=== PATIENT | female | born 1950 | race Caucasian/White ===

== ENCOUNTER 2016-11-05 08:26 | Emergency (ER) | payer MEDICARE, MEDICAID, SELFPAY ==
[2016-11-05 08:43] VITALS: BMI 31.2
[2016-11-05] MEDS ORDERED: ONDANSETRON HCL 4 MG/2 ML VIAL IV STA (09:19)
[2016-11-05 09:32] LABS: AUTOMATED BASOPHIL 0.2 % (0-2); AUTOMATED EOSINOPHIL 0.2 % (0-5); AUTOMATED LYMPH 29.5 % (17-44); AUTOMATED MONOCYTE 8.9 % (3-10); AUTOMATED NEUTROPHIL 61.2 % (45-76); MPV 8.6 fL (7.4-10.4)
--- NOTE | 2016-11-05 09:36 | EDPRACDOC ---
- General Information Chief Complaint: Chest Pain Stated Complaint: NAUSEA Time Seen by Provider: 11/05/16 08:49 Information Source: Patient, Hospital Superintendent Mode of Arrival: Ambulance Home Medications: Home Medications Aspirin [Aspirin, Chewable] 81 mg PO DAILY 09/05/12 Furosemide [Lasix] 40 mg PO DAILY 09/05/12 Buprenorphine [Butrans Patch (5 mcg/hr)] 1 patch TOP .WEEKLY 04/21/13 Desvenlafaxine Succinate [Pristiq] 100 mg PO DAILY 09/14/13 Topiramate 200 mg PO HS 09/14/13 Zoledronic Acid/Mannitol&Water [Reclast 5 mg/100 ml Solution] 5 mg IV .YEARLY Levothyroxine [Synthroid, Levoxyl] 88 mcg PO DAILY 03/24/16 Amlodipine Besylate 10 mg PO HS 06/01/16 Diazepam [Valium] 10 mg PO BID PRN 06/01/16 Fluticasone/Vilanterol [Breo Ellipta 200-25 Mcg INH] 1 puff INH BID 06/01/16 Nebulizer [Needs Home Nebulizer] 1 item NEB DIR 06/01/16 Albuterol Sulfate [Proventil, Ventolin] 2.5 mg NEB Q6H PRN 11/05/16 Aripiprazole [Abilify] 5 mg PO HS 11/05/16 Atorvastatin Calcium [Lipitor] 40 mg PO HS 11/05/16 Azelastine/Fluticasone [Dymista Nasal [place]] 1 spray GOLD DAILY 11/05/16 Azithromycin 250 mg PO DAILY #4 tablet 11/05/16 CYANOCOBALAMIN (Vitamin B-12) [Vitamin B-12] 1,000 mcg IM .MONTHLY 11/05/16 Ergocalciferol (Vitamin D2) [Vitamin D] 50,000 units PO We@0900 11/05/16 Estradiol [Estrace] 1 grams PV MOWEFR 11/05/16 L. Acidophilus/Pectin, [place] [Acidophilus Capsule] 1 each PO DAILY 11/05/16 Olmesartan Medoxomil [Benicar] 40 mg PO DAILY 11/05/16 Pantoprazole Sodium [Protonix] 40 mg PO DAILY 11/05/16 Potassium Chloride [K-Tab ER] 20 meq PO HS 11/05/16 Promethazine HCl [Phenergan] 12.5 mg PO Q6H PRN 11/05/16 Promethazine [Phenergan] 25 mg PO Q8H PRN #30 tab 11/05/16 Scopolamine [Transderm Scop] 1 pat TOP Q72H PRN 11/05/16 Valacyclovir HCl [Valtrex] 500 mg PO HS 11/05/16 Allergies/Adverse Reactions: Allergies Allergy/AdvReac Type Severity Reaction Status Date / Time Penicillins Allergy Severe Hives* Verified 11/05/16 08:43 Corticosteroids Allergy Intermediate Hives* Verified 11/05/16 08:43 (Glucocorticoids) prednisone [Prednisone] Allergy Unknown Hives* Verified 11/05/16 08:43 clonidine Allergy Hypotension Verified 11/05/16 08:43 regadenoson Allergy Wheezing Verified 11/05/16 08:43 - History of Present Illness Onset: 05 HPI: PT PRESENTS WITH SUBSTERNAL/EPIGASTRIC PAIN THAT BEGAN THIS MORNING. PATIENT REPORTS THAT SHE HAD A TEMPERATURE TO 100.1 YESTERDAY AND HAS BEEN FEELING POORLY FOR THE LAST 3 DAYS. SHE HAS FATIGUE, NAUSEA, AND VOMITING. Chest Pain Location: Reports: Substernal, Epigastric Pain Radiation: Reports: Neck Symptoms Occur: Reports: At Rest Medications within 24 Hours: Reports: Aspirin Pain Came On: Reports: Suddenly Pain Status: Present Now Pain Description: Reports: Aching Pain Severity: Moderate Pain Worsens With: Reports: Nothing Pain Improves With: Reports: Nothing Associated Signs and Symptoms: Reports: SOB, Abdominal Pain, Nausea, Vomiting ED Past Medical History - History Reviewed Yes Nurses notes reviewed and agree except as marked - Patient Medical History Cardiac History: Reports: Atrial Fibrillation, Hypertension, Congestive Heart Failure, Heart Attack, Cardiac Catheterization, Hypercholesterolemia Respiratory History: Reports: Asthma, COPD, Chronic Bronchitis, Emphysema GI/ History: Reports: Kidney Stones, Gastroesophageal Reflux Musculoskeletal History: Reports: Arthritis Psychological History: Reports: Depression, Anxiety Systemic History: Reports: Diabetes, Hypothyroidism. Denies: Cancer Surgical History: Reports: Hysterectomy, Cardiac Catheterization - Family Medical History Reports: Cardiac Disorders (FATHER) - Social Medical History Smoking Status: Never smoker Lives In: Home EDM Review of Systems - Review of Systems ROS Negative Except as Marked: Yes All systems reviewed and were negative except as marked Constitutional: Fever, Fatigue, Weakness Respiratory: Shortness of Breath Cardiovascular: Chest Pain Gastrointestinal: Nausea, Pain, Vomiting. negative: Diarrhea - Physical Exam Constitutional: Alert Oriented to: Time, Person, Place Last recorded Vital Signs: Last Vital Signs Temp 97.8 F 11/05/16 08:30 Pulse 101 11/05/16 09:28 Resp 22 11/05/16 09:28 BP 134/72 11/05/16 09:28 Pulse Ox 97 11/05/16 09:28 Oxygen Pulse Oxygen Saturation 97 O2 Device Oxygen Flow Rate Fraction of Inspired Oxygen ( FIO2) - HEENT Head: negative: Deformity, Laceration Eye Exam: negative: Conjunctival Injection, Pale Conjunctiva Oropharynx: negative: Membranes Dry Nose: negative: Congestion, Discharge Neck: negative: Limited ROM - Respiratory/Cardiovascular Respiratory: Normal - CTA. negative: Accessory Muscle Use, Diminished, Tachypnea Cardiovascular: Tachycardia. negative: Bradycardia, Irregular - GI Auscultation: Normal Palpation: Normal Tenderness: Mild, Epigastric. negative: Guarding, Rebound, Rigidity - Musculoskeletal Extremities: Radial Pulse (PALPABLE) - Integumentary Skin: Warm, Dry. negative: Rash - Neurologic Memory Impaired: Normal Motor Function: Normal Mood Description: Anxious Thought: Coherent Perception: Normal ED Chest Pain Exam - Respiratory/Cardiovascular Chest Palpation: negative: Tender, Reproduces Pain - Action ASA given in the ED: Yes - Re-evaluation Re-evaluation 1 Re-evaluation Time: 13:27 IMAGING SHOWS BIBASILAR INFLAMMATION/INFECTION. WILL TREAT PNEUMONIA. - Results 11/05/16 09:15 11/05/16 09:15 WBC 10.5 xk/uL (3.8-10.8) 11/05/16 09:15 RBC 4.86 xM/uL (4.20-5.40) 11/05/16 09:15 Hgb 16.5 g/dL (12.0-16.0) H 11/05/16 09:15 Hct 47.5 % (36-47) H 11/05/16 09:15 MCV 98 fL (81-99) 11/05/16 09:15 MCH 34.0 pg (27-32) H 11/05/16 09:15 MCHC 34.8 g/dl (33-36) 11/05/16 09:15 RDW 13.1 % (11.5-14.5) 11/05/16 09:15 Plt Count 282 xk/uL (130-400) 11/05/16 09:15 MPV 8.6 fL (7.4-10.4) 11/05/16 09:15 Neut % (Auto) 61.2 % (45-76) 11/05/16 09:15 Lymph % (Auto) 29.5 % (17-44) 11/05/16 09:15 Smith % (Auto) 8.9 % (3-10) 11/05/16 09:15 Eos % (Auto) 0.2 % (0-5) 11/05/16 09:15 Baso % (Auto) 0.2 % (0-2) 11/05/16 09:15 Absolute Neuts (auto) 6.41 xk/uL (1.7-8.2) 11/05/16 09:15 Absolute Lymphs (auto) 3.05 xk/uL (0.65-4.75) 11/05/16 09:15 Microbiology 11/05/16 09:00 Influenza Type A Antigen Screen - Final Nasal Washing/Aspirate Or Swab NEGATIVE Please note: A NEGATIVE result does not exclude an influenza virus infection. It is a presumptive result and, if required, confirmation should be done using either a virus culture or an FDA-cleared influenza A&B molecular assay. ("NORMAL" value = "NEGATIVE".) Influenza Type B Antigen Screen - Final NEGATIVE Please note: A NEGATIVE result does not exclude an influenza virus infection. It is a presumptive result and, if required, confirmation should be done using either a virus culture or an FDA-cleared influenza A&B molecular assay. ("NORMAL" value = "NEGATIVE".) Lab Results 11/05/16 09:15 WBC 10.5 RBC 4.86 Hgb 16.5 H Hct 47.5 H MCV 98 MCH 34.0 H MCHC 34.8 RDW 13.1 Plt Count 282 MPV 8.6 Neut % (Auto) 61.2 Lymph % (Auto) 29.5 Smith % (Auto) 8.9 Eos % (Auto) 0.2 Baso % (Auto) 0.2 Absolute Neuts (auto) 6.41 Absolute Lymphs (auto) 3.05 Laboratory Results - last 24 hr 11/05/16 09:15 WBC 10.5 RBC 4.86 Hgb 16.5 H Hct 47.5 H MCV 98 MCH 34.0 H MCHC 34.8 RDW 13.1 Plt Count 282 MPV 8.6 Neut % (Auto) 61.2 Lymph % (Auto) 29.5 [place] % (Auto) 8.9 Eos % (Auto) 0.2 Baso % (Auto) 0.2 Absolute Neuts (auto) 6.41 Absolute Lymphs (auto) 3.05 Laboratory Results 11/05/16 09:15 - EKG EKG #1 EKG Time: 08:37 -: Yes EKG interpreted by me Rate: bpm: 100 Rhythm: ST Block: RBBB, IVCD ST: Nonsp Decision Time to Discharge: 13:28 - Departure Yes I personally saw and evaluated the patient. Disposition: Home Condition: Stable Final Diagnosis: Hypokalemia Pneumonia Qualifiers: Pneumonia type: due to unspecified organism Laterality: bilateral Lung location : lower lobe of lung Qualified Code(s): J18.9 - Pneumonia, unspecified organism Instructions: Community Acquired Pneumonia (ED) Education/Counseling Given To: Patient Education/Counseling Given Regarding: Diagnosis, Treatment, Prognosis, Follow Up Referrals: None,No Provider [Primary Care Provider] - Call for Appointment Prescriptions: Azithromycin 250 mg PO DAILY #4 tablet Promethazine [Phenergan] 25 mg PO Q8H PRN #30 tab PRN Reason: Nausea/Vomiting
[2016-11-05 09:40] LABS: BLOOD UREA NITROGEN 14 MG/DL (7-17); CALC CORRECTED 9.5 MG/DL (8.4-10.2); CALCIUM 9.4 MG/DL (8.4-10.2); CALCULATED OSMOLALITY 268 MOs/Kg (270-290); CHLORIDE 106 mEq/L (98-107); GLUCOSE 123 MG/DL (70-99); SODIUM LEVEL 138 mEq/L (137-146); TOTAL PROTEIN 7.5 G/DL (6.3-8.2)
[2016-11-05 09:43] LABS: PARTIAL THROMB. TIME 26.4 SEC (22-35)
--- NOTE | 2016-11-05 10:05 | DIRPT ---
CLINICAL DATA: Fever and fatigue EXAM: CHEST - 2 VIEW COMPARISON: 10/08/2016 FINDINGS: The heart size and mediastinal contours are within normal limits. Both lungs are clear. The visualized skeletal structures are unremarkable. IMPRESSION: No active disease. Electronically Signed By: Juliocesar Sultana M.D. On: 11/05/2016 10:03
[2016-11-05] MEDS ORDERED: NS 1,000 ML IV ONE (10:18)
[2016-11-05 10:23] LABS: LEUKOCYTES/URINE NEG (NEGATIVE); NITRITE/URINE NEG (NEGATIVE); RBC/URINE 0-2 (0-5); URINE OCCULT BLOOD NEG (NEG/TRACE)
[2016-11-05] MEDS ORDERED: ASPIRIN 325 MG TAB PO ONE (10:26)
[2016-11-05 10:54] LABS: CPK TOTAL WITH POSSIBLE MB 75 IU/L (30-134)
[2016-11-05] MEDS ORDERED: PROMETHAZINE 25 MG/ML VIAL IV STA (11:02)
[2016-11-05] MEDS ORDERED: MORPHINE 4 MG/ML INJECTION IV ONE (11:02)
[2016-11-05] MEDS ORDERED: LABETALOL 20 MG/4 ML SYRINGE IV STA (11:52)
[2016-11-05] MEDS ORDERED: Pharmacy Review for Metformin - IV Contrast Given SCH (12:00)
--- NOTE | 2016-11-05 12:57 | DIRPT ---
CLINICAL DATA: Epigastric pain since early this morning. Feeling bad for 3 days. EXAM: CT ABDOMEN AND PELVIS WITH CONTRAST TECHNIQUE: Multidetector CT imaging of the abdomen and pelvis was performed using the standard protocol following bolus administration of intravenous contrast. CONTRAST: 80 mL Isovue 370 COMPARISON: None. FINDINGS: Lower chest: Mild bibasilar subpleural hazy airspace disease with mild interstitial thickening and interspersed areas of ground-glass opacity which may be secondary to an infectious or inflammatory process. Normal heart size. Hepatobiliary: Normal liver. Prior cholecystectomy. Mild intrahepatic biliary ductal prominence. Pancreas: Normal. Spleen: Normal. Adrenals/Urinary Tract: Normal adrenal glands. Normal right kidney. 4 mm left renal nonobstructing calculus. No obstructive uropathy. Normal bladder. Stomach/Bowel: No bowel wall thickening or dilatation. No pneumatosis, pneumoperitoneum or portal venous gas. Normal appendix. No abdominal pelvic free fluid. Vascular/Lymphatic: Normal caliber abdominal aorta. No lymphadenopathy. Reproductive: Prior hysterectomy. No adnexal mass. Other: No other fluid collection or hematoma. Musculoskeletal: No acute osseous abnormality. No lytic or sclerotic osseous lesion. Right hip arthroplasty. Degenerative disc disease with disc height loss and a broad-based disc bulge at L5-S1. Bilateral foraminal stenosis at L5-S1. IMPRESSION: 1. No acute abdominal or pelvic pathology. 2. Mild bibasilar subpleural hazy airspace disease with scattered areas of interstitial thickening and interspersed areas of ground glass opacities which may be secondary to an infectious or inflammatory etiology. 3. Nonobstructing left renal calculus. Electronically Signed By: Flakita Pena On: 11/05/2016 12:54
[2016-11-05] MEDS ORDERED: POTASSIUM CHLORIDE 20 MEQ TAB PO STA (13:16)
[2016-11-05] MEDS ORDERED: AZITHROMYCIN 250 MG TAB PO ONE (13:26)
[2016-11-05 14:05] VITALS: BP 135/69; PULSE 93; TEMP 98.6
== END 2016-11-05 14:05 | disposition home or self-care (01) ==
LOC: ED 08:26
DX: J18.9 Pneumonia, unspecified organism (principal); E87.6 Hypokalemia; R10.13 Epigastric pain
CPT/HCPCS: 36415; 71020; 74177; 80053; 81001; 82550; 83605; 83690; 84484; 85025; 85610; 85730; 87040; 87086; 87804; 93005; 96361; 96374; 96375; 99285; A9270; A9698; J2270; J2405; J2550; J3490

== ENCOUNTER 2016-11-06 12:41 | Inpatient (IN) | payer MEDICARE, MEDICAID, SELFPAY ==
[2016-11-06] MEDS ORDERED: ACETAMINOPHEN 325 MG/TAB TABLET PO PRN (15:28)
[2016-11-06] MEDS ORDERED: GLUCAGON 1 MG VIAL SQ PRN (15:28)
[2016-11-06] MEDS ORDERED: HYDROCODONE 5 MG/ACETAMIN 325 MG TAB PO PRN (15:28)
[2016-11-06] MEDS ORDERED: PROMETHAZINE 25 MG/ML VIAL IV PRN (15:28)
[2016-11-06] MEDS ORDERED: Docusate Sodium 100 MG CAP PO PRN (15:28)
[2016-11-06] MEDS ORDERED: DEXTROSE 25 GM/50 ML PFS IV PRN (15:28)
[2016-11-06] MEDS ORDERED: GLUCOSE (ORAL GEL) 15 GM TUBE PO PRN (15:28)
[2016-11-06] MEDS ORDERED: NS 500 ML IV ONE (15:35)
[2016-11-06] MEDS ORDERED: LEVALBUTEROL 1.25 MG in 3 ML NEB NEB PRN (15:37)
[2016-11-06] MEDS ORDERED: Vaccine Screening Complete SCH (16:00)
[2016-11-06] MEDS ORDERED: METHYLPREDNISOLONE 125 MG/2 ML VIAL IV ONE (16:00)
--- NOTE | 2016-11-06 16:10 | DIRPT ---
CLINICAL DATA: Pneumonia. Severe shortness of breath and cough. Chest pain. Asthma. EXAM: PORTABLE CHEST 1 VIEW COMPARISON: 11/05/2016 FINDINGS: The heart size and mediastinal contours are within normal limits. Both lungs are clear. The visualized skeletal structures are unremarkable. IMPRESSION: No active disease. Electronically Signed By: Andrew Diaz M.D. On: 11/06/2016 16:07
[2016-11-06] MEDS: LEVALBUTEROL 1.25 MG in 3 ML NEB NEB SCH ×2 (16:14→23:27)
[2016-11-06] MEDS: IPRATROPIUM 0.02% 2.5 ML NEB NEB SCH ×2 (16:16→23:24)
[2016-11-06 16:26] LABS: ABG Draw Site Left Brachial; ALLEN'S TEST PASS; TCO2 17.9 MMOL/L (23-27)
[2016-11-06] MEDS: ENOXAPARIN 40 MG/0.4 ML PFS SQ SCH (16:35)
[2016-11-06] MEDS: REGULAR INSULIN 100 UNITS/ML - 3 ML VIAL SQ SCH ×2 (16:38→22:15)
[2016-11-06 17:08] LABS: AUTOMATED BASOPHIL 0.4 % (0-2); AUTOMATED LYMPH 30.1 % (17-44); AUTOMATED MONOCYTE 8.3 % (3-10); AUTOMATED NEUTROPHIL 61.2 % (45-76); MPV 8.8 fL (7.4-10.4)
[2016-11-06] MEDS: Levofloxacin 750 mg/150 ml D5W 750 MG/150 ML RTU IV SCH (17:10)
[2016-11-06 17:25] LABS: BLOOD UREA NITROGEN 13 MG/DL (7-17); CALCIUM 9.2 MG/DL (8.4-10.2); CALCULATED OSMOLALITY 276 MOs/Kg (270-290); CHLORIDE 111 mEq/L (98-107); CPK TOTAL WITH POSSIBLE MB 53 IU/L (30-134); GLUCOSE 115 MG/DL (70-99); SODIUM LEVEL 143 mEq/L (137-146); TOTAL PROTEIN 7.2 G/DL (6.3-8.2)
--- NOTE | 2016-11-06 17:27 | CAPUEKG ---
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
[2016-11-06 17:29] LABS: PARTIAL THROMB. TIME 24.9 SEC (22-35); PT-INR 1.1
--- NOTE | 2016-11-06 20:41 | GENMEDPROG ---
Chief Complaint: COPD exac, pneumonia, HTN, anxiety - Physical Examination Vital Signs and I&O: Last Vital Signs Temp 98.0 F 11/06/16 16:00 Pulse 100 11/06/16 16:00 Resp 20 11/06/16 16:00 BP 134/63 11/06/16 16:00 Pulse Ox 97 11/06/16 16:00 Oxygen Pulse Oxygen Saturation 97 O2 Device Room Air Oxygen Flow Rate Fraction of Inspired Oxygen ( FIO2) Intake & Output 11/03/16 11/04/16 11/05/16 11/06/16 23:59 23:59 23:59 23:59 Intake Total 252 Output Total 2 Balance 250 Patient's weight 72.575 kg
--- NOTE | 2016-11-06 20:53 | HIMCONSMED ---
Consultation Date: 11/06/16 Requesting Physician: Marcos Juarez Consulting Doctor: Tori Robledo Consult Reason: Medical Management Neelam Rivas is a 66 year old woman who states that she came to the ED a few days ago and was diagnosed with pneumonia. She was treated as an outpatient and discharged home, however, she continued to feel poorly, so she returned to Dr. Juarez's office for further evaluation. She has a prior history of asthma with COPD. She has never smoked, but complained of persistent weakness and tightness in her chest, with a dull ache in her chest and numbness in her left shoulder. She stated that this was a vague discomfort that would come and go through-out the day, but never really seemed to resolve. She has a history of heart disease, and does have hypertension and hyperlipidemia. Her father with an acute myocardial infarction. Chief Complaint: short of breath, anxiety - Past Medical and Surgical History Cardiac History: Reports: Atrial Fibrillation, Hypertension, Congestive Heart Failure, Heart Attack, Cardiac Catheterization, Hypercholesterolemia Respiratory History: Reports: Asthma, COPD, Chronic Bronchitis, Emphysema GI/ History: Reports: Kidney Stones, Gastroesophageal Reflux Systemic History: Reports: Diabetes, Hypothyroidism. Denies: Cancer Musculoskeletal History: Reports: Arthritis Psychological History: Reports: Depression, Anxiety Past Surgical History: Reports: Hysterectomy, Cardiac Catheterization, Other ( hip replacement, [place] fundoplication, breast reduction, portacath) Allergies Penicillins Allergy (Severe, Verified 11/06/16 16:07) Hives* This was "a shot in my knee" states she can take Solumedrol Corticosteroids (Glucocorticoids) Allergy (Intermediate, Verified 11/06/16 16:07 ) Hives* prednisone [Prednisone] Allergy (Unknown, Verified 11/06/16 16:07) Hives* clonidine Allergy (Verified 11/06/16 16:07) Hypotension regadenoson Allergy (Verified 11/06/16 16:07) Wheezing Patient developed wheezing/dyspnea after administration of Lexiscan for stress test on 06/01/16. Did not immediately resolve with DuoNeb treatment and required transfer to ED for management. Home Medications Aspirin [Aspirin, Chewable] 81 mg PO DAILY 09/05/12 Furosemide [Lasix] 40 mg PO DAILY 09/05/12 Desvenlafaxine Succinate [Pristiq] 100 mg PO DAILY 09/14/13 Topiramate 200 mg PO HS 09/14/13 Zoledronic Acid/Mannitol&Water [Reclast 5 mg/100 ml Solution] 5 mg IV .YEARLY Levothyroxine [Synthroid, Levoxyl] 88 mcg PO DAILY 03/24/16 Amlodipine Besylate 10 mg PO HS 06/01/16 Diazepam [Valium] 10 mg PO BID PRN 06/01/16 Fluticasone/Vilanterol [Breo Ellipta 200-25 Mcg INH] 1 puff INH BID 06/01/16 Nebulizer [Needs Home Nebulizer] 1 item NEB DIR 06/01/16 Albuterol Sulfate [Proventil, Ventolin] 2.5 mg NEB Q6H PRN 11/05/16 Atorvastatin Calcium [Lipitor] 40 mg PO HS 11/05/16 Azelastine/Fluticasone [Dymista Nasal [place]] 1 spray GOLD DAILY 11/05/16 CYANOCOBALAMIN (Vitamin B-12) [Vitamin B-12] 1,000 mcg IM .MONTHLY 11/05/16 Ergocalciferol (Vitamin D2) [Vitamin D] 50,000 units PO We@0900 11/05/16 Estradiol [Estrace] 1 grams PV MOWEFR 11/05/16 L. Acidophilus/Pectin, [place] [Acidophilus Capsule] 1 each PO DAILY 11/05/16 Olmesartan Medoxomil [Benicar] 40 mg PO DAILY 11/05/16 Pantoprazole Sodium [Protonix] 40 mg PO DAILY 11/05/16 Potassium Chloride [K-Tab ER] 20 meq PO HS 11/05/16 Promethazine [Phenergan] 25 mg PO Q8H PRN #30 tab 11/05/16 Scopolamine [Transderm Scop] 1 pat TOP Q72H PRN 11/05/16 Valacyclovir HCl [Valtrex] 500 mg PO HS 11/05/16 Buprenorphine [Butrans] 1 pat TOP WEEKLY 11/06/16 LIDOCAINE 5% Ointment [XYLOCAINE 5% Ointment] 1 gm TOP DIR PRN 11/06/16 - Social History Travel Outside of [place] in the Last 3 Months?: No Lives: With Family Smoking Status: Never smoker Social History: Denies: Alcohol Use - Family History Reports: Cardiac Disorders (FATHER) - Review of Systems Constitutional: Fatigue, Weakness Eyes: No Symptoms Reported Ears: No Symptoms Reported Nose: No Symptoms Reported Mouth: No Symptoms Reported Throat/Neck: No Symptoms Reported Respiratory: Cough, Shortness of Breath, Asthma, Bronchitis, Dyspnea Cardiovascular: Chest Pain, Edema (last week), Palpitations Gastrointestinal: Nausea, Diarrhea, Constipation, Heartburn Genitourinary: Frequency, Postmenopause Neurological: Dizziness, Headache, Weakness Musculoskeletal:: Osteoarthritis, Weakness, Joint Pain, Muscle Pain, Swelling Integumentary: No Symptoms Reported Allergic/Immunologic: No Symptoms Reported Hematologic: Anemia Endocrine: Excessive Sweating, Heat Intolerance, Diabetes, Hypothyroidism Psychiatric: Anxiety, Depression - Physical Exam Vital Signs: Initial Vitals Temperature 98.0 F 11/06/16 16:00 Pulse Rate 100 11/06/16 16:00 Respiratory Rate 20 11/06/16 16:00 Blood Pressure 134/63 11/06/16 16:00 Pulse Oxygen Saturation 97 11/06/16 16:00 Constitutional: No apparent distress, Alert Oriented to: Time, Person, Place - HEENT Head: Normal Eye: Normal (PERRL: EOMI) Oropharynx: Normal, Membranes Dry. negative: Exudate, Red Tympanic Membrane: Normal ENT EAC: Normal Nose: negative: Bleeding, Congestion, Discharge Respiratory: Diminished, Rales, Wheezes Cardiovascular: Tachycardia (regular rhythm and rate). negative: Gallop/S3, Gallop/S4 - GI Auscultation: Normal Palpation: Normal (soft, nondistended, no mass) Tenderness: Non tender Felix's Sign: Negative Rectal Exam: Deferred - Musculoskeletal Back: Normal Extremities: Normal, Pedal Pulse (normal), Radial Pulse (normal). negative: Clubbing, Cyanosis, Edema Spine: non-tender, normal alignment, normal inspection - Integumentary Skin: Warm, Dry Lymphatics: Normal - Neurologic Memory Impaired: Normal Motor Function: Normal Cranial Nerve: Normal Cerebellar: Normal Mood Description: Anxious Thought: Coherent Perception: Normal - Lab Results Laboratory Tests 11/06/16 11/06/16 11/06/16 16:20 16:38 16:40 WBC Hgb Hct Plt Count PT INR APTT Puncture Site Left brachial pH 7.410 pCO2 27.0 L pO2 99.0 HCO3 17.1 L Total CO2 17.9 L Base Excess -6.0 L FiO2 % Room air Sodium 143 Potassium 3.3 L Chloride 111 H Carbon Dioxide 18 L Anion Gap 17 H BUN 13 Creatinine 0.80 Estimated GFR (MDRD) > 60 Glucose 115 H POC Capillary Glucose 104 H Calculated Osmolality 276 Calcium 9.2 Total Bilirubin 0.7 AST 43 H ALT 73 H Alkaline Phosphatase 90 Creatine Kinase 53 Troponin I < 0.01 Total Protein 7.2 Albumin 4.0 11/06/16 11/06/16 16:40 16:40 WBC 12.1 H Hgb 15.2 Hct 43.5 Plt Count 251 PT 10.8 INR 1.1 APTT 24.9 Puncture Site pH pCO2 pO2 HCO3 Total CO2 Base Excess FiO2 % Sodium Potassium Chloride Carbon Dioxide Anion Gap BUN Creatinine Estimated GFR (MDRD) Glucose POC Capillary Glucose Calculated Osmolality Calcium Total Bilirubin AST ALT Alkaline Phosphatase Creatine Kinase Troponin I Total Protein Albumin - Diagnostic Findings CXR': FINDINGS: The heart size and mediastinal contours are within normal limits. Both lungs are clear. The visualized skeletal structures are unremarkable. IMPRESSION: No active disease. Electronically Signed By: Andrew Diaz M.D. On: 11/06/2016 16:07 EKG: Normal sinus rhythm Incomplete right bundle branch block Possible Inferior infarct, age undetermined Possible Anterior infarct, age undetermined Abnormal ECG - Assessment (1) Pneumonia J18.9 - PNEUMONIA, UNSPECIFIED ORGANISM Acute Present on Admission: Yes Qualifiers: Pneumonia type: due to unspecified organism Laterality: bilateral Lung location: lower lobe of lung Qualified Code(s): J18.9 - Pneumonia, unspecified organism Continue current antibiotic regimen (Levaquin), monitor CXR and maintain O2 sats > 92%. (2) Chest pain at rest R07.9 - CHEST PAIN, UNSPECIFIED Acute Present on Admission: Yes Could be due to her pneumonia, but patient has a history of coronary artery disease with previous LA. Need to rule out LA and evaluate for ongoing ischemia. Continue oxygen, beta-vanessa, PRN NTG. Will add telemetry, check troponins, schedule stress test. (3) CAD (coronary artery disease) I25.10 - ATHSCL HEART DISEASE OF [place] CORONARY ARTERY W/O ANG PCTRS Chronic Present on Admission: Yes Qualifiers: Coronary Disease-Associated Artery/Lesion type: [place] artery [place] vs. transplanted heart: [place] heart Associated angina: with unstable angina Qualified Code(s): I25.110 - Atherosclerotic heart disease of [place] coronary artery with unstable angina pectoris (4) Chronic obstructive lung disease - COPD J44.9 - CHRONIC OBSTRUCTIVE PULMONARY DISEASE, UNSPECIFIED Active Present on Admission: Yes Acute exacerbation, mild. Patient is receiving DuoNebs and steroids, not wheezing at the time of my exam, yet reports having had chest pain x 2-3 days. (5) Hypothyroidism E03.9 - HYPOTHYROIDISM, UNSPECIFIED Chronic Present on Admission: Yes Continue current dose of Synthroid. (6) Hypokalemia E87.6 - HYPOKALEMIA Acute Present on Admission: Yes Replace losses and recheck.
[2016-11-06] MEDS ORDERED: POTASSIUM CHLORIDE 20 MEQ/15 ML ORAL SOLN PO ONE (21:14)
[2016-11-06] MEDS ORDERED: NITROGLYCERINE 0.4 MG TAB SL PRN (21:24)
[2016-11-06] MEDS ORDERED: ASPIRIN (CHEWABLE) 81 MG TAB PO ONE (21:25)
[2016-11-06] MEDS: CARVEDILOL 3.125 MG TAB PO SCH (22:20)
[2016-11-06] MEDS: METHYLPREDNISOLONE 125 MG/2 ML VIAL IV SCH (22:22)
[2016-11-07] MEDS ORDERED: NS 50 ML IV ONE ×2 (01:26→03:23)
[2016-11-07] MEDS: ACETAMINOPHEN 650 MG SUPP PR PRN (03:12)
[2016-11-07] MEDS: REGULAR INSULIN 100 UNITS/ML - 3 ML VIAL SQ SCH ×4 (03:14→21:42)
[2016-11-07] MEDS ORDERED: PROMETHAZINE 25 MG/ML VIAL IV ONE (03:22)
[2016-11-07] MEDS: METHYLPREDNISOLONE 125 MG/2 ML VIAL IV SCH ×2 (04:55→09:34)
[2016-11-07] MEDS: IPRATROPIUM 0.02% 2.5 ML NEB NEB SCH ×2 (07:32→15:51)
[2016-11-07] MEDS: LEVALBUTEROL 1.25 MG in 3 ML NEB NEB SCH ×2 (07:35→15:49)
[2016-11-07] MEDS: CARVEDILOL 3.125 MG TAB PO SCH ×2 (09:33→20:24)
[2016-11-07] MEDS: ASPIRIN (CHEWABLE) 81 MG TAB PO SCH (09:33)
--- NOTE | 2016-11-07 09:35 | GENMEDPROG ---
Chief Complaint: COPD, CHEST PAIN, FAN, ANXIETY Currently: Reports: Cough, Wheezing, FAN, SOB DVT Prophylaxis: Yes - Physical Examination Vital Signs and I&O: Last Vital Signs Temp 98 F 11/07/16 06:00 Pulse 59 L 11/07/16 06:00 Resp 20 11/07/16 06:00 BP 136/72 11/07/16 06:00 Pulse Ox 96 11/07/16 06:00 Oxygen Pulse Oxygen Saturation 96 O2 Device Room Air Oxygen Flow Rate Fraction of Inspired Oxygen ( FIO2) Intake & Output 11/04/16 11/05/16 11/06/16 11/07/16 23:59 23:59 23:59 23:59 Intake Total 252 379 Output Total 2 Balance 250 379 Patient's weight 72.575 kg 73.482 kg General: Alert, Oriented x3, Cooperative, No acute distress HEENT: Normal, PERRLA, EOMI, Anicteric Sclera, Mucous membr. moist/pink Neck: Non-tender, Full range of motion, Normal Trachea alignment, Normal inspection, No Masses palpable, No Thyromegaly palpable Lymphatics: Normal Respiratory: Normal - CTA, Diminished Cardiovascular: Regular rate and rhythm, Normal S1, Normal S2, Good Pedal Pulses. negative: LE Edema GI: Normal bowel sounds, Soft, Non tender, No masses Extremities/Musculoskeletal: Normal pulses, FROM. negative: Swelling, Edema Skin: Warm,Dry and Intact, No rashes, No breakdown Neurological: Normal speech, Strength at 5/5 X4 ext, Normal tone Psych/Mental Status: Cooperative, Anxious - Assessment (1) Pneumonia Acute J18.9 - PNEUMONIA, UNSPECIFIED ORGANISM Qualifiers: Pneumonia type: due to unspecified organism Laterality: bilateral Lung location: lower lobe of lung Qualified Code(s): J18.9 - Pneumonia, unspecified organism Comment/Plan: Continue current antibiotic regimen (Levaquin), monitor CXR and maintain O2 sats> 92%. (2) Chest pain at rest Acute R07.9 - CHEST PAIN, UNSPECIFIED Comment/Plan: Could be due to her pneumonia, but patient has a history of coronary artery disease with previous HI. Need to rule out HI and evaluate for ongoing ischemia. Continue oxygen, beta-vanessa, PRN NTG. Continue telemetry, stress test delayed due to patient anxiety and wheezing. (3) CAD (coronary artery disease) Chronic I25.10 - ATHSCL HEART DISEASE OF [place] CORONARY ARTERY W/O ANG PCTRS Qualifiers: Coronary Disease-Associated Artery/Lesion type: [place] artery [place] vs. transplanted heart: [place] heart Associated angina: with unstable angina Qualified Code(s): I25.110 - Atherosclerotic heart disease of [place] coronary artery with unstable angina pectoris Comment/Plan: Need to rule out HI and evaluate for ongoing ischemia. Continue oxygen, beta-vanessa, PRN NTG. Continue telemetry, stress test delayed due to patient anxiety and wheezing. (4) Chronic obstructive lung disease - COPD Active J44.9 - CHRONIC OBSTRUCTIVE PULMONARY DISEASE, UNSPECIFIED Comment/ Plan: Acute exacerbation, mild. Patient is receiving DuoNebs and steroids, not wheezing at the time of my exam, yet reports having had chest pain x 2-3 days. (5) Hypothyroidism Chronic E03.9 - HYPOTHYROIDISM, UNSPECIFIED Comment/Plan: Continue current dose of Synthroid. (6) Hypokalemia Acute E87.6 - HYPOKALEMIA Comment/Plan: Replace losses and recheck.
[2016-11-07] MEDS ORDERED: DOBUTamine 500,000 MCG/250 ML RTU IV ONE (10:00)
[2016-11-07] MEDS ORDERED: SODIUM CHLORIDE 0.9% 10 ML FLUSH FLUSH ONE (10:00)
--- NOTE | 2016-11-07 10:57 | PCM.PULM ---
Chief Complaint: Respiratory failure Asthma exacerbation Anxiety Uneventful overnight with no acute distress. patient in bed, alert and follows command. Still having cough,wheeze, SOB,FAN,fatigued, occasional headache and seems to be anxious and concerned about her breathing and her heart. No chest pain reported. Family at bedside. Medication list reviewed:yes Notes reviewed:yes DVT prophylaxis: yes - Physical Examination Vital Signs and I&O: Last Vital Signs Temp 98 F 11/07/16 06:00 Pulse 80 11/07/16 09:49 Resp 24 11/07/16 09:49 BP 141/78 11/07/16 09:49 Pulse Ox 98 11/07/16 09:49 Oxygen Pulse Oxygen Saturation 98 O2 Device Room Air Oxygen Flow Rate Fraction of Inspired Oxygen ( FIO2) Intake & Output 11/04/16 11/05/16 11/06/16 11/07/16 23:59 23:59 23:59 23:59 Intake Total 252 379 Output Total 2 Balance 250 379 Patient's weight 72.575 kg 73.482 kg General: Alert, Oriented x3, Cooperative, No acute distress, Well appearing, Well nourished, Weakness, Fatigue Respiratory: Normal - CTA Cardiovascular: Regular rate, Regular rate and rhythm, Normal S1, No Gallops, Rubs/Murmurs, Normal S2, Good Pedal Pulses (Dp pulses 2+ bilaterally) GI: Normal bowel sounds, Soft, Non tender, No hepatospenomegaly, No masses Extremities/Musculoskeletal: Normal pulses Skin: Warm,Dry and Intact, No rashes, No breakdown, No significant lesion Neurological: Normal Steady Gait, Normal speech, Strength at 5/5 X4 ext, Normal tone, Cranial nerves 3-12 NL Psych/Mental Status: Cooperative, Anxious Result Diagrams: 11/06/16 16:40 11/06/16 16:40 Labs (last 24 hours): Laboratory Results - last 24 hr 11/06/16 11/06/16 11/06/16 16:20 16:38 16:40 WBC RBC Hgb Hct MCV MCH MCHC RDW Plt Count MPV Neut % (Auto) Lymph % (Auto) [place] % (Auto) Eos % (Auto) Baso % (Auto) Absolute Neuts (auto) Absolute Lymphs (auto) PT INR APTT Puncture Site Left brachial pH 7.410 pCO2 27.0 L pO2 99.0 HCO3 17.1 L Total CO2 17.9 L Base Excess -6.0 L FiO2 % Room air Specimen Drawn By Jd Sodium 143 Potassium 3.3 L Chloride 111 H Carbon Dioxide 18 L Anion Gap 17 H BUN 13 Creatinine 0.80 Estimated GFR (MDRD) > 60 Glucose 115 H POC Capillary Glucose 104 H Calculated Osmolality 276 Calcium 9.2 Total Bilirubin 0.7 AST 43 H ALT 73 H Alkaline Phosphatase 90 Creatine Kinase 53 Troponin I < 0.01 Total Protein 7.2 Albumin 4.0 11/06/16 11/06/16 11/06/16 16:40 16:40 21:35 WBC 12.1 H RBC 4.41 Hgb 15.2 Hct 43.5 MCV 99 MCH 34.4 H MCHC 34.9 RDW 13.3 Plt Count 251 MPV 8.8 Neut % (Auto) 61.2 Lymph % (Auto) 30.1 [place] % (Auto) 8.3 Eos % (Auto) 0.0 Baso % (Auto) 0.4 Absolute Neuts (auto) 7.38 Absolute Lymphs (auto) 3.63 PT 10.8 INR 1.1 APTT 24.9 Puncture Site pH pCO2 pO2 HCO3 Total CO2 Base Excess FiO2 % Specimen Drawn By Sodium Potassium Chloride Carbon Dioxide Anion Gap BUN Creatinine Estimated GFR (MDRD) Glucose POC Capillary Glucose Calculated Osmolality Calcium Total Bilirubin AST ALT Alkaline Phosphatase Creatine Kinase Troponin I < 0.01 Total Protein Albumin 11/06/16 11/07/16 11/07/16 22:13 01:15 06:32 WBC RBC Hgb Hct MCV MCH MCHC RDW Plt Count MPV Neut % (Auto) Lymph % (Auto) [place] % (Auto) Eos % (Auto) Baso % (Auto) Absolute Neuts (auto) Absolute Lymphs (auto) PT INR APTT Puncture Site pH pCO2 pO2 HCO3 Total CO2 Base Excess FiO2 % Specimen Drawn By Sodium Potassium Chloride Carbon Dioxide Anion Gap BUN Creatinine Estimated GFR (MDRD) Glucose POC Capillary Glucose 187 H 140 H Calculated Osmolality Calcium Total Bilirubin AST ALT Alkaline Phosphatase Creatine Kinase Troponin I < 0.01 Total Protein Albumin Lab/DI/Studies Reviewed: Cxray: 1 view No active disease Medications Acetaminophen (Tylenol Tablet) 650 mg PO Q6H PRN PRN Reason: Mild Pain or Fever above 100.4 Stop: 11/20/16 15:27 Aspirin (Aspirin, Chewable) 162 mg PO DAILYWM TRELL Stop: 11/20/16 16:59 Last Admin: 11/07/16 09:33 Dose: 162 mg Carvedilol (Coreg) 3.125 mg PO BID [facility] Stop: 11/20/16 21:59 Last Admin: 11/07/16 09:33 Dose: 3.125 mg Acetaminophen (Tylenol Suppository) 650 mg NV Q6H PRN PRN Reason: Mild Pain or Fever above 100.4 Stop: 11/20/16 15:27 Last Admin: 11/07/16 03:12 Dose: 650 mg Acetaminophen/Hydrocodone Bitart (Hydrocodone 5 Mg/Acetamin 325 Mg) 1 tab PO Q4H PRN PRN Reason: Pain Not Relieved by Tylenol Stop: 11/20/16 15:27 Docusate Sodium (Colace) 100 mg PO BID PRN PRN Reason: Stool Softener Stop: 11/20/16 15:27 Enoxaparin Sodium (Lovenox) 40 mg SQ Q24H [facility] Stop: 11/20/16 17:59 Last Admin: 11/06/16 16:35 Dose: 40 mg Insulin Human Regular (Humulin R) 0 units SQ ACHS [facility] PRN Reason: Protocol Stop: 11/20/16 16:59 Last Admin: 11/07/16 03:14 Dose: Not Given Ipratropium [place] (Atrovent) 2.5 ml NEB RTQ8 [facility] Stop: 11/20/16 15:59 Last Admin: 11/07/16 07:32 Dose: 2.5 ml Levalbuterol HCl (Xopenex 1.25 Mg) 1.25 mg NEB Q8H PRN PRN Reason: Wheezing Stop: 11/20/16 15:36 Last Admin: 11/07/16 02:35 Dose: 1.25 mg Levalbuterol HCl (Xopenex 1.25 Mg) 1.25 mg NEB RTQ8 [facility] Stop: 11/20/16 15:59 Last Admin: 11/07/16 07:35 Dose: 1.25 mg Levofloxacin/Dextrose (Levaquin 750 Mg) 750 mg in 150 mls @ 100 mls/hr IV Q24H [facility] Stop: 11/13/16 17:59 Last Admin: 11/06/16 17:10 Dose: 100 mls/hr Methylprednisolone Sodium Succinate (Solu-Medrol) 60 mg IV Q6H TRE[facility] Stop: 11/20/16 21:59 Last Admin: 11/07/16 09:34 Dose: 60 mg Nitroglycerin (Ntg (Nitrostat Sublingual Tab)) 0.4 mg SL Q5MIN PRN PRN Reason: Chest Pain or Discomfort Stop: 11/20/16 16:59 Promethazine HCl (Phenergan) 12.5 mg IV Q4H PRN PRN Reason: NAUSEA / VOMITING Stop: 11/20/16 15:27 Last Admin: 11/07/16 01:29 Dose: 12.5 mg - Assessment/Plan (1) Respiratory failure Acute J96.90 - RESPIRATORY FAILURE, UNSP, UNSP W HYPOXIA OR HYPERCAPNIA Comment/Plan: Improving slowly. Anxiety seems to be contributing to her dyspnea therefore i would start Xanax 0.5mg Q8h trell. Would also cut the steroids down to40mg Q8h. Her cardiac stress test was rescheduled.Continue nebulizer treatment and DVT/GI prophylaxis. Continue full supportive care. (2) Asthma exacerbation Acute J45.901 - UNSPECIFIED ASTHMA WITH (ACUTE) EXACERBATION Comment/Plan: Patient is reactively stable at this time. would continue current therapy and other supportive care (3) Anxiety Acute F41.9 - ANXIETY DISORDER, UNSPECIFIED Comment/Plan: Would start Xanax 0.5mg scheduled
[2016-11-07] MEDS: ALPRAZOLAM 0.5 MG TAB PO SCH ×2 (13:50→22:57)
[2016-11-07] MEDS ORDERED: PROMETHAZINE 25 MG TAB PO PRN (14:47)
[2016-11-07] MEDS ORDERED: SCOPOLAMINE TRANSDERMAL PATCH TOP PRN (14:47)
[2016-11-07] MEDS ORDERED: DIAZEPAM 10 MG PO PRN (14:47)
[2016-11-07] MEDS ORDERED: LIDOCAINE 5% TOP PRN (14:47)
[2016-11-07] MEDS ORDERED: ALBUTEROL 0.083% 3 ML NEB NEB PRN (14:47)
[2016-11-07] MEDS ORDERED: DIAZEPAM 5 MG TAB PO PRN (14:56)
[2016-11-07] MEDS ORDERED: [UNRECOGNIZED DRUG - OTHER] NEB SCH (15:00)
[2016-11-07] MEDS ORDERED: CYANOCOBALAMIN 1000 MCG/ML VIAL IM SCH (15:00)
[2016-11-07] MEDS ORDERED: WATER IV SCH (15:00)
[2016-11-07] MEDS ORDERED: MANNITOL IV SCH (15:00)
[2016-11-07] MEDS ORDERED: LIDOCAINE 5% OINT 35.44 GM TUBE TOP PRN (15:00)
[2016-11-07] MEDS ORDERED: [UNRECOGNIZED DRUG - OTHER] IV SCH (15:00)
[2016-11-07] MEDS ORDERED: ZOLEDRONIC ACID IV SCH (15:00)
[2016-11-07] MEDS ORDERED: AZELASTINE 137 MCG/SPRAY NASAL SPRAY NAS SCH (16:00)
[2016-11-07] MEDS ORDERED: FLUTICASONE PROPIONATE 16 GM BOT NAS SCH (16:00)
[2016-11-07] MEDS: POTASSIUM CHLORIDE 20 MEQ TAB PO SCH (17:20)
[2016-11-07] MEDS: METHYLPREDNISOLONE 40 MG/1 ML VIAL IV SCH (17:20)
[2016-11-07] MEDS: ENOXAPARIN 40 MG/0.4 ML PFS SQ SCH (17:20)
[2016-11-07] MEDS: Levofloxacin 750 mg/150 ml D5W 750 MG/150 ML RTU IV SCH (17:20)
[2016-11-07] MEDS: BUDESONIDE 0.5 MG NEB NEB SCH (20:34)
[2016-11-07] MEDS ORDERED: VALACYCLOVIR HCL 500 MG CAPLET PO SCH (21:00)
[2016-11-07] MEDS ORDERED: TOPIRAMATE 200 MG PO SCH (21:00)
[2016-11-07] MEDS ORDERED: TOPIRAMATE 100 MG TAB PO SCH (21:00)
[2016-11-07] MEDS ORDERED: ATORVASTATIN 40 MG TAB PO SCH (21:00)
[2016-11-07] MEDS ORDERED: POTASSIUM CHLORIDE 20 MEQ TAB PO SCH (21:00)
[2016-11-07] MEDS ORDERED: POTASSIUM CHLORIDE 20 MEQ PO SCH (21:00)
[2016-11-07] MEDS ORDERED: AMLODIPINE 10 MG TAB PO SCH (21:00)
[2016-11-07] MEDS ORDERED: Non-Formulary Medication ITEM (Fluticasone/Vilanterol [Breo Ellipta 200-25 Mcg Inh] 1 PU INH SCH (21:00)
[2016-11-08] MEDS: LEVALBUTEROL 1.25 MG in 3 ML NEB NEB SCH ×3 (00:18→15:22)
[2016-11-08] MEDS: IPRATROPIUM 0.02% 2.5 ML NEB NEB SCH ×3 (00:20→15:24)
[2016-11-08] MEDS: METHYLPREDNISOLONE 40 MG/1 ML VIAL IV SCH ×2 (02:37→11:49)
[2016-11-08 03:58] VITALS: BMI 31.6
[2016-11-08] MEDS ORDERED: PANTOPRAZOLE 40 MG TAB PO SCH (06:00)
[2016-11-08] MEDS ORDERED: LEVOTHYROXINE 88 MCG (0.088 MG) TAB PO SCH (06:00)
[2016-11-08 06:38] VITALS: TEMP 97.9
[2016-11-08] MEDS: POTASSIUM CHLORIDE 20 MEQ TAB PO SCH ×2 (06:50→11:49)
[2016-11-08] MEDS: REGULAR INSULIN 100 UNITS/ML - 3 ML VIAL SQ SCH ×2 (06:50→11:56)
[2016-11-08] MEDS: ALPRAZOLAM 0.5 MG TAB PO SCH ×2 (06:50→11:54)
[2016-11-08] MEDS: ACETAMINOPHEN 650 MG SUPP PR PRN (06:51)
[2016-11-08] MEDS ORDERED: DOBUTamine 500,000 MCG/250 ML RTU IV ONE (07:00)
[2016-11-08] MEDS: BUDESONIDE 0.5 MG NEB NEB SCH (07:26)
[2016-11-08] MEDS: ASPIRIN (CHEWABLE) 81 MG TAB PO SCH (08:18)
[2016-11-08] MEDS: CARVEDILOL 3.125 MG TAB PO SCH (08:19)
[2016-11-08] MEDS ORDERED: AZELASTINE NAS SCH (09:00)
[2016-11-08] MEDS ORDERED: FUROSEMIDE 40 MG TAB PO SCH (09:00)
[2016-11-08] MEDS ORDERED: EXT REL PO SCH (09:00)
[2016-11-08] MEDS ORDERED: [UNRECOGNIZED DRUG - OTHER] PO SCH (09:00)
[2016-11-08] MEDS ORDERED: FLUTICASONE PROPIONATE 16 GM BOT NAS SCH (09:00)
[2016-11-08] MEDS ORDERED: ASPIRIN (CHEWABLE) 81 MG TAB PO SCH (09:00)
[2016-11-08] MEDS ORDERED: OLMESARTAN 40 MG TABLET PO SCH (09:00)
[2016-11-08] MEDS ORDERED: DESVENLAFAXINE SUCCINATE 100 MG PO SCH (09:00)
[2016-11-08] MEDS ORDERED: AZELASTINE 137 MCG/SPRAY NASAL SPRAY NAS SCH (09:00)
[2016-11-08] MEDS ORDERED: DESVENLAFAXINE 50 MG PO SCH (09:00)
[2016-11-08] MEDS ORDERED: FLUTICASONE NAS SCH (09:00)
[2016-11-08] MEDS ORDERED: SESTAMIBI 8 MCI V IV ONE (10:09)
--- NOTE | 2016-11-08 10:09 | PCM.PULM ---
Chief Complaint: Patient is feeling a little better. She had Cardiac stress test this morning. Current complaints: SOB, FAN,cough,wheeze sometimes. Patient has a c/o SOB,FAN,cough,wheeze. Current medication list and notes reviewed:yes, Events from last night noted and discussed with Clinical Staff DVT prophylaxis:yes - Physical Examination Vital Signs and I&O: Last Vital Signs Temp 97.9 F 11/08/16 06:00 Pulse 74 11/08/16 06:00 Resp 20 11/08/16 06:00 BP 106/58 L 11/08/16 06:00 Pulse Ox 97 11/08/16 06:00 Oxygen Pulse Oxygen Saturation 97 O2 Device Room Air Oxygen Flow Rate Fraction of Inspired Oxygen ( FIO2) Intake & Output 11/05/16 11/06/16 11/07/16 11/08/16 23:59 23:59 23:59 23:59 Intake Total 252 1019 254 Output Total 2 600 1750 Balance 250 419 -1496 Patient's weight 72.575 kg 73.482 kg 76.771 kg General: Alert, Oriented x3, No acute distress, Well appearing, Weakness ( improving), Fatigue Respiratory: Normal - CTA Cardiovascular: Regular rate, Regular rate and rhythm, Normal S1, No Gallops, Rubs/Murmurs, Normal S2 GI: Normal bowel sounds, Soft, Non tender, No hepatospenomegaly Extremities/Musculoskeletal: Normal pulses Skin: Warm,Dry and Intact, No rashes, No significant lesion Neurological: Normal Steady Gait, Normal speech, Strength at 5/5 X4 ext, Cranial nerves 3-12 NL Psych/Mental Status: Appropriate, Cooperative, Anxious (better) Result Diagrams: 11/06/16 16:40 11/06/16 16:40 Labs (last 24 hours): Laboratory Results - last 24 hr 11/08/16 11/08/16 06:14 06:49 POC Capillary Glucose 147 H Troponin I < 0.01 Lab/DI/Studies Reviewed: Medications Acetaminophen (Tylenol Tablet) 650 mg PO Q6H PRN PRN Reason: Mild Pain or Fever above 100.4 Stop: 11/20/16 15:27 Aspirin (Aspirin, Chewable) 162 mg PO DAILYWM [facility] Stop: 11/20/16 16:59 Last Admin: 11/07/16 09:33 Dose: 162 mg Carvedilol (Coreg) 3.125 mg PO BID [facility] Stop: 11/20/16 21:59 Last Admin: 11/07/16 09:33 Dose: 3.125 mg Acetaminophen (Tylenol Suppository) 650 mg PA Q6H PRN PRN Reason: Mild Pain or Fever above 100.4 Stop: 11/20/16 15:27 Last Admin: 11/07/16 03:12 Dose: 650 mg Acetaminophen/Hydrocodone Bitart (Hydrocodone 5 Mg/Acetamin 325 Mg) 1 tab PO Q4H PRN PRN Reason: Pain Not Relieved by Tylenol Stop: 11/20/16 15:27 Docusate Sodium (Colace) 100 mg PO BID PRN PRN Reason: Stool Softener Stop: 11/20/16 15:27 Enoxaparin Sodium (Lovenox) 40 mg SQ Q24H [facility] Stop: 11/20/16 17:59 Last Admin: 11/06/16 16:35 Dose: 40 mg Insulin Human Regular (Humulin R) 0 units SQ ACHS [facility] PRN Reason: Protocol Stop: 11/20/16 16:59 Last Admin: 11/07/16 03:14 Dose: Not Given Ipratropium [place] (Atrovent) 2.5 ml NEB RTQ8 [facility] Stop: 11/20/16 15:59 Last Admin: 11/07/16 07:32 Dose: 2.5 ml Levalbuterol HCl (Xopenex 1.25 Mg) 1.25 mg NEB Q8H PRN PRN Reason: Wheezing Stop: 11/20/16 15:36 Last Admin: 11/07/16 02:35 Dose: 1.25 mg Levalbuterol HCl (Xopenex 1.25 Mg) 1.25 mg NEB RTQ8 [facility] Stop: 11/20/16 15:59 Last Admin: 11/07/16 07:35 Dose: 1.25 mg Levofloxacin/Dextrose (Levaquin 750 Mg) 750 mg in 150 mls @ 100 mls/hr IV Q24H [facility] Stop: 11/13/16 17:59 Last Admin: 11/06/16 17:10 Dose: 100 mls/hr Nitroglycerin (Ntg (Nitrostat Sublingual Tab)) 0.4 mg SL Q5MIN PRN PRN Reason: Chest Pain or Discomfort Stop: 11/20/16 16:59 Promethazine HCl (Phenergan) 12.5 mg IV Q4H PRN PRN Reason: NAUSEA / VOMITING Stop: 11/20/16 15:27 Last Admin: 11/07/16 01:29 Dose: 12.5 mg Alprazolam (Xanax) 0.5 mg PO Q8H [facility] Stop: 11/21/16 16:59 Last Admin: 11/08/16 06:50 Dose: Not Given Methylprednisolone Sodium Succinate (Solu-Medrol) 40 mg IV Q8H [facility] Stop: 11/21/16 17:59 Last Admin: 11/08/16 02:37 Dose: 40 mg Potassium Chloride (Klor-Con M20) 20 meq PO TIDWM [facility] Stop: 11/21/16 17:29 Last Admin: 11/08/16 06:50 Dose: Not Given Diazepam (Valium) 10 mg PO BID PRN PRN Reason: ANXIETY/SPASM Stop: 11/21/16 14:55 Last Admin: 11/07/16 20:28 Dose: 10 mg - Assessment/Plan (1) Respiratory failure Acute J96.90 - RESPIRATORY FAILURE, UNSP, UNSP W HYPOXIA OR HYPERCAPNIA Comment/Plan: Patient is feeling better I would continue the current supportive care on this patient I think Xanax made a big difference for her respiratory insufficiency I would continue other supportive care taper the steroids down slowly continue antibiotics to complete a total of 10 days nebulizers DVT and GI prophylaxis and follow up in my office in about 1 week from now (2) Asthma exacerbation Acute J45.901 - UNSPECIFIED ASTHMA WITH (ACUTE) EXACERBATION (3) Anxiety Acute F41.9 - ANXIETY DISORDER, UNSPECIFIED Comment/Plan: Continue Xanax 0.5mg scheduled
[2016-11-08] MEDS ORDERED: PROBIOTIC BLEND TAB PO SCH (12:00)
--- NOTE | 2016-11-08 13:27 | PCM.DCS92 ---
- Final/Secondary Discharge Diagnosis (1) Pneumonia Acute J18.9 - PNEUMONIA, UNSPECIFIED ORGANISM Present on Admission: Yes due to unspecified organism bilateral lower lobe of lung J18.9 - Pneumonia, unspecified organism Comment: Continue current antibiotic regimen (Levaquin), monitor CXR and maintain O2 sats> 92%. (2) Chest pain at rest Acute R07.9 - CHEST PAIN, UNSPECIFIED Present on Admission: Yes Comment: Patient has a history of coronary artery disease with previous NE. 3 TROPONINS ALL NORMAL ruled out NE and she was evaluated for ongoing ischemia with stress testing. She was placed on telemetry, oxygen, beta-vanessa, PRN NTG. Her stress test was delayed due to patient anxiety and wheezing. Stress test is completed today: negative with no evidence of ischemia. (3) CAD (coronary artery disease) Chronic I25.10 - ATHSCL HEART DISEASE OF [place] CORONARY ARTERY W/O ANG PCTRS Present on Admission: Yes [place] artery [place] heart with unstable angina I25.110 - Atherosclerotic heart disease of [place] coronary artery with unstable angina pectoris Comment: Continue oxygen, beta-vanessa, PRN NTG. (4) Chronic obstructive lung disease - COPD Active J44.9 - CHRONIC OBSTRUCTIVE PULMONARY DISEASE, UNSPECIFIED Present on Admission: Yes Comment: Acute exacerbation, mild. Patient is receiving DuoNebs and steroids, not wheezing at the time of my exam, yet reports having had chest pain x 2-3 days. (5) Hypothyroidism Chronic E03.9 - HYPOTHYROIDISM, UNSPECIFIED Present on Admission: Yes Comment: Continue current dose of Synthroid. (6) Hypokalemia Acute E87.6 - HYPOKALEMIA Present on Admission: Yes Comment: Replace losses and recheck. (7) Anxiety Acute F41.9 - ANXIETY DISORDER, UNSPECIFIED Present on Admission: Yes Comment: Reports numerous stressors at home and feels uncomfortable in her current home environment. Planing to move in with her mother. Considering [facility]. Discharge Disposition: Home Discharge Condition: Improved Cognitive Discharge Status: Unimpaired Fuctional Discharge Status: Independent, Dyspnea with ambulation Physician Follow up/Referrals: Pipe Starkey MD [Primary Care Provider] - Call for Appointment Marcos Juarez MD [Staff Physician] - 3-4 Days New Prescriptions: Alprazolam [Xanax] 0.5 mg PO Q8H #30 tablet Carvedilol [Coreg] 3.125 mg PO BID #60 tablet Fluticasone Propionate [Flonase] 1 sprays GOLD DAILY #1 bottle Levofloxacin [Levaquin] 750 mg PO DAILY #5 tablet Nitroglycerin Sublingual Tab [NTG (NitroStat Sublingual Tab)] 0.4 mg SL Q5MIN PRN #30 tablet PRN Reason: Chest Pain Or Discomfort POTASSIUM CHLORIDE Tablet [K-DUR 20 mEq Tablet*] 20 meq PO TIDWM #10 tab.er.prt Prednisone [Sterapred Ds] 10 mg PO DIR #21 pack Discharge Home Medication List Aspirin [Aspirin, Chewable] 81 mg PO DAILY 09/05/12 [History Confirmed 11/07/16 Last Taken 11/04/16] Furosemide [Lasix] 40 mg PO DAILY 09/05/12 [History Confirmed 11/07/16 Last Taken 11/04/16] Desvenlafaxine Succinate [Pristiq] 100 mg PO DAILY 09/14/13 [History Confirmed 11/07/16 Last Taken 11/04/16] Topiramate 200 mg PO HS 09/14/13 [History Confirmed 11/07/16 Last Taken 11/04/16 ] Zoledronic Acid/Mannitol&Water [Reclast 5 mg/100 ml Solution] 5 mg IV .YEARLY [History Confirmed 11/07/16 Last Taken 1 Year Ago] Levothyroxine [Synthroid, Levoxyl] 88 mcg PO DAILY 03/24/16 [History Confirmed 11/07/16 Last Taken 11/04/16] Amlodipine Besylate 10 mg PO HS 06/01/16 [History Confirmed 11/07/16 Last Taken 11/04/16] Diazepam [Valium] 10 mg PO BID PRN 06/01/16 [History Confirmed 11/07/16 Last Taken 05/31/16] Fluticasone/Vilanterol [Breo Ellipta 200-25 Mcg INH] 1 puff INH BID 06/01/16 [ History Confirmed 11/07/16 Last Taken 11/05/16 08:30] Nebulizer [Needs Home Nebulizer] 1 item NEB DIR 06/01/16 [History Confirmed 11/07/16 Last Taken 05/31/16] Albuterol Sulfate [Ventolin] 2.5 mg NEB Q6H PRN 11/05/16 [History Confirmed Last Taken Unknown] Atorvastatin Calcium [Lipitor] 40 mg PO HS 11/05/16 [History Confirmed 11/07/16 Last Taken 11/04/16] Azelastine/Fluticasone [Dymista Nasal [place]] 1 spray GOLD DAILY 11/05/16 [ History Confirmed 11/07/16 Last Taken 11/04/16] CYANOCOBALAMIN (Vitamin B-12) [Vitamin B-12 (cyanocobalamin)] 1,000 mcg IM .MONTHLY 11/05/16 [History Confirmed 11/07/16 Last Taken 10/10/16] Ergocalciferol (Vitamin D2) [Vitamin D2 (ergocalciferol)] 50,000 units PO We@ 0900 11/05/16 [History Confirmed 11/07/16 Last Taken 11/04/16] Estradiol [Estrace] 1 grams PV MOWEFR 11/05/16 [History Confirmed 11/07/16 Last Taken 11/04/16] L. Acidophilus/Pectin, [place] [Acidophilus Capsule] 1 each PO DAILY 11/05/16 [ History Confirmed 11/07/16 Last Taken 11/04/16] Olmesartan Medoxomil [Benicar] 40 mg PO DAILY 11/05/16 [History Confirmed Last Taken 11/04/16] Pantoprazole Sodium [Protonix] 40 mg PO DAILY 11/05/16 [History Confirmed Last Taken 11/04/16] Potassium Chloride [K-Tab ER] 20 meq PO HS 11/05/16 [History Confirmed 11/07/16 Last Taken 11/04/16] Promethazine [Phenergan] 25 mg PO Q8H PRN #30 tab 11/05/16 [Rx Confirmed Last Taken Unknown] Scopolamine [Transderm Scop] 1 pat TOP Q72H PRN 11/05/16 [History Confirmed Last Taken 11/04/16] Valacyclovir HCl [Valtrex] 500 mg PO HS 11/05/16 [History Confirmed 11/07/16 Last Taken 11/04/16] Buprenorphine [Butrans] 1 pat TOP WEEKLY 11/06/16 [History Confirmed 11/07/16 Last Taken 11/06/16] LIDOCAINE 5% Ointment [XYLOCAINE 5% Ointment] 1 gm TOP DIR PRN 11/06/16 [ History Confirmed 11/07/16 Last Taken Unknown] Alprazolam [Xanax] 0.5 mg PO Q8H #30 tablet 11/08/16 [Rx Last Taken Unknown] Carvedilol [Coreg] 3.125 mg PO BID #60 tablet 11/08/16 [Rx Last Taken Unknown] Fluticasone Propionate [Flonase] 1 sprays GOLD DAILY #1 bottle 11/08/16 [Rx Last Taken Unknown] Levofloxacin [Levaquin] 750 mg PO DAILY #5 tablet 11/08/16 [Rx Last Taken Unknown] Nitroglycerin Sublingual Tab [NTG (NitroStat Sublingual Tab)] 0.4 mg SL Q5MIN PRN #30 tablet 11/08/16 [Rx Last Taken Unknown] POTASSIUM CHLORIDE Tablet [K-DUR 20 mEq Tablet*] 20 meq PO TIDWM #10 tab.er.prt 11/08/16 [Rx Last Taken Unknown] Prednisone [Sterapred Ds] 10 mg PO DIR #21 pack 11/08/16 [Rx Last Taken Unknown] O2 Device: Room Air Diet at Discharge: Cardiac, Heart Healthy, Low Salt Activity: As Tolerated Call Office For: Worsening Symptoms, Fever over 101 F Discontinue use of:: Alcohol, All Types of Tobacco - DC Summary Notes Hospital Course Note:: Discharge summary on patient named NEELAM RIVAS admitted to [facility] on 11/06/16 by Marcos Juarez MD. Date of discharge is [11/08/16]. Neelam Rivas is a 66 year old emotionally distraught female who was admitted to the hospital by Dr. Juarez for acute bronchitis and bronchopneumonia. She has COPD and anxiety also. She reported several episodes of chest pain prior to admission, so we were consulted to evaluate her. She came to the ED a few days ago and was diagnosed with pneumonia. She was treated as an outpatient and discharged home, however, she continued to feel poorly, so she returned to Dr. Juarez's office for further evaluation. She has a prior history of asthma with COPD. She has never smoked, but complained of persistent weakness and tightness in her chest, with a dull ache in her chest and numbness in her left shoulder. She stated that this was a vague discomfort that would come and go through-out the day, but never really seemed to resolve. She has a history of heart disease, and does have hypertension and hyperlipidemia. Her father with an acute myocardial infarction. She was admitted by Dr. Juarez, and then a Hospitalist service consult was made. We evaluated the patient with telemetry monitoring, added a beta-vanessa , a statin, aspirin, and NTG as needed to relieve her pain. She had a series of 3 TROPONINS ALL NORMAL to rule out NE and she was evaluated for ongoing ischemia with stress testing. She was placed on telemetry, oxygen, beta-vanessa , and PRN NTG. Her stress test was delayed due to patient anxiety and wheezing. Stress test is completed today: negative with no evidence of ischemia. On physical exam, she had no evidence of wheezing, is moving air well , and her CXR is clear. She was advised that she was well enough to be discharged home and that she had no evidence of acute coronary ischemia. She became quite distraught at this, apparently because she lives alone and she is afraid of some of her neighbors. After speaking with a pediatric social worker, she elected to stay with her mother for several days after discharge while she considers her housing options. She is to keep her appointment with Dr. Starkey and Dr. Juarez as scheduled. Code: 36165 (>30min.) - Physical Exam Vital Signs: Last Vital Signs Temp 97.9 F 11/08/16 06:00 Pulse 74 11/08/16 06:00 Resp 20 11/08/16 06:00 BP 106/58 L 11/08/16 06:00 Pulse Ox 97 11/08/16 06:00 Oxygen Pulse Oxygen Saturation 97 O2 Device Room Air Oxygen Flow Rate Fraction of Inspired Oxygen ( FIO2) Constitutional: No apparent distress, Alert Oriented to: Time, Person, Place - HEENT Head: Normal Eye: Normal (PERRL: EOMI) Oropharynx: Normal, Membranes Dry. negative: Exudate, Red Tympanic Membrane: Normal ENT EAC: Normal Nose: No Symptoms Reported. negative: Bleeding, Congestion, Discharge - Respiratory/Cardiovascular Respiratory: Normal - CTA, Diminished. negative: Wheezes Cardiovascular: Normal (REGULAR RHYTHM AND RATE) - GI Auscultation: Normal Palpation: Normal (soft, nondistended, no mass) Tenderness: Non tender Felix's Sign: Negative Rectal Exam: Deferred - Musculoskeletal Back: Normal Extremities: Normal, Pedal Pulse (normal), Radial Pulse (normal). negative: Clubbing, Cyanosis, Edema - Integumentary Skin: Warm, Dry Lymphatics: Normal - Neurologic Memory Impaired: Normal Motor Function: Normal Cranial Nerve: Normal Cerebellar: Normal Mood Description: Anxious, Depressed Thought: Coherent Perception: Normal
[2016-11-08 14:37] VITALS: BP 149/73; PULSE 81
--- NOTE | 2016-11-08 16:53 | CAPUCARD ---
DOBUTAMINE CARDIOLITE REST STRESS SCAN INDICATION: Chest pain. The patient's baseline EKG reveals sinus rhythm, nonspecific ST-T changes, resting heart rate 75, blood pressure 142/90 mmHg. The patient received intravenous dobutamine per protocol. During the test, the patient did not experience any significant symptoms. There were nondiagnostic EKG changes and no arrhythmias. At 30 micrograms/kilograms/minute, patient achieved 87% predicted maximal heart rate. At that time, peak heart rate was 136, blood pressure 170/90 mmHg. Cardiolite images do not reveal any evidence of ischemia. Ejection fraction is normal. IMPRESSION: 1. Cardiolite images do not reveal any evidence of ischemia. 2. Ejection fraction. 3. No significant symptoms, EKG changes, or arrhythmias occurred. [id number]
[2016-11-09] MEDS ORDERED: ESTRADIOL PV SCH (14:47)
[2016-11-11] MEDS ORDERED: ERGOCALCIFEROL (VITAMIN D2) 50000 UNITS CAP PO SCH (09:00)
[2016-11-11] MEDS ORDERED: BUPRENORPHINE TOP SCH (09:00)
== END 2016-11-08 18:30 | disposition home health service (06) | DRG 189 ==
LOC: MPS3 15:02
PROVIDERS: ADMIT Specialist; ATTEND Specialist
PROC: 03983ZZ Drainage of Left Brachial Artery, Percutaneous Approach (ICD-10-PCS; principal; 2016-11-06)
DX: J96.20 Acute and chronic respiratory failure, unspecified whether with hypoxia or hypercapnia (principal); J18.0 Bronchopneumonia, unspecified organism; I11.0 Hypertensive heart disease with heart failure; J44.0 Chronic obstructive pulmonary disease with (acute) lower respiratory infection; J45.31 Mild persistent asthma with (acute) exacerbation; J44.1 Chronic obstructive pulmonary disease with (acute) exacerbation; I50.9 Heart failure, unspecified; F41.9 Anxiety disorder, unspecified; G47.33 Obstructive sleep apnea (adult) (pediatric); G25.81 Restless legs syndrome; K21.9 Gastro-esophageal reflux disease without esophagitis; I25.10 Atherosclerotic heart disease of native coronary artery without angina pectoris; E87.6 Hypokalemia; E03.9 Hypothyroidism, unspecified; I25.2 Old myocardial infarction; J20.9 Acute bronchitis, unspecified; E78.5 Hyperlipidemia, unspecified; Z79.82 Long term (current) use of aspirin; Z79.52 Long term (current) use of systemic steroids; Z79.899 Other long term (current) drug therapy
CPT/HCPCS: 36600; 71010; 78452; 80053; 82550; 82803; 82962; 84484; 85025; 85610; 85730; 87040; 87086; 87205; 93005; 93017; 94640; 96372; A4216; A9500; J1250; J1650; J1956; J2550; J2920; J2930; J3490; J7614